=== PATIENT | male | born 1965 | race Caucasian/White ===

== ENCOUNTER 2023-08-17 19:06 | Emergency (ER) | payer OTHER, SELFPAY ==
[2023-08-17 19:11] VITALS: BP 143/71
[2023-08-17 20:27] LABS: Urine Albumin Negative (Neg - Trace); Urine Bilirubin Negative (Negative); Urine Character Clear (Clear); Urine Color Yellow; Urine Glucose Negative (Negative); Urine Ketone Negative (Negative); Urine Leukocyte Negative (Negative); Urine Nitrite Negative (Negative); Urine Occult Blood Trace (Negative); Urine Urobilinogen Negative (Neg - 1+)
[2023-08-17 20:37] LABS: Urine Red Blood Cell 0-2 /HPF (0-2); Urine White Cell None Seen /HPF (0-5)
--- NOTE | 2023-08-17 20:48 | ED.GENMED ---
History of Present Illness
General
Chief Complaint: Urinary Symptoms
Source: patient and spouse
Exam Limitations: none
Time Seen by Provider: 08/17/23 19:23
Travel History
Have you had any contact with someone who has COVID-19?: No
Do you have any symptoms of coronavirus? Fever > 100 degrees, chills, cough, shortness of breath, sore throat, loss of taste or smell, muscle aches, or headache?: No
History of Present Illness
History of Present Illness:
58-year-old male with a history of BPH, pituitary tumor, [place]'s disease who presents with difficulty urinating. Patient states he has urge to go and gets on small amounts. Has had this in the past. Patient states feels a little bit bloated but
otherwise no pain on my evaluation. Does have a little bit of dysuria. No pain with defecation. No fevers. No vomiting. Was seen in the past in the emergency department was given a medication that did help him. Is followed by urology.
Otherwise no other symptoms
Past History
Past History
ED Past Medical History: GERD, HTN, Other (s/p pituitary tumor resection resulting in [place]'s disease, BPH), Other (OA) and Other (ankylosing spondilitis)
ED Past Surgical History: Orthopedic (meniscus repair Dr. Parsons. Hernia repair, appendectomy) and Other (pituitary tumor surgery)
Social History
Tobacco: Smoker
Alcohol: None
Personal:
Living: with family
Employment: Employed (customer service)
Family History
Family History: Other (Vascular disease); Negative Early CAD or CAD
Phy Exam
Physical Exam
Physical Exam:
CONSTITUTIONAL Patient alert and oriented to person, place and time. Well-appearing. Vital signs reviewed.
HEAD atraumatic, normocephalic.
EYES eyelids normal to inspection, Extraocular muscles intact, Conjunctiva normal, Sclera normal.
NECK normal range of motion, Trachea midline, no jugular venous distention.
RESPIRATORY CHEST No respiratory distress noted, Chest expansion equal, Bilateral breath sounds clear.
CARDIOVASCULAR regular rate and rhythm, Heart sounds normal.
ABDOMEN very mild suprapubic tenderness. No distention.
Rectal exam enlarged prostate, prostate nontender
BACK normal inspection, no obvious deformities
UPPER EXTREMITY range of motion normal, Motor strength normal, no cyanosis, no edema.
LOWER EXTREMITY range of motion normal, Motor strength normal, no cyanosis, no edema.
NEURO Speech normal, No focal motor deficits, Corina coma scale 15, Memory normal, Cranial Nerves intact to screening exam.
SKIN skin warm, dry, and normal in color.
Course
Orders/Labs/Results
Orders:
Orders
08/17/23 20:17
Urinalysis Reflex To Culture Urgent
Date Specimen was Collected: 08/17/23
Time Specimen was Collected: 20:16
Urine Microscopic Reflex Cult Urgent
08/17/23 20:47
Finasteride [Proscar] 5 mg PO NOW STA
Abnormal Lab Results
08/17/23
20:17
Ur Occult Blood Reflex Trace A
(Negative)
Vital Signs
Initial and Last Documented VS:
Initial Vital Signs
Temp Pulse Resp BP Pulse Ox
98 F 76 18 143/71 98
08/17/23 19:11 08/17/23 19:11 08/17/23 19:11 08/17/23 19:11 08/17/23 19:11
Last Documented Vital Signs
Temp Pulse Resp BP Pulse Ox
98 F 76 18 143/71 98
08/17/23 19:11 08/17/23 19:11 08/17/23 19:11 08/17/23 19:11 08/17/23 19:11
MDM/Problems Addressed
Differential Diagnosis Includes:
Prostatitis, UTI, BPH, urinary retention
MDM/Problems Addressed:
BPH, acute urinary retention with
*Pulse Oximetry
Patient hypoxic: no
*Critical Care Note
Total Time (30-74mins, 75-104mins- exclusive of procedures): Not Applicable
Data Reviewed
Review of Other/Old Records Reveals: Labs (Prior urine reviewed)
Source: patient and spouse
Prescriptions/Medications Considered But Not Given:
Considered antibiotics but prostate nontender. In addition, urinalysis negative
Patient Management
Escalation/DeEscalation of care consider admission/obs:
Patient appears well. In the past Proscar worked on his last visit. Does not want a catheter. Postvoid residual around 250s to 300. Okay for discharge and outpatient urology follow-up
ED Attending Note
-
Portions of this chart may have been created with voice recognition software.� Occasional wrong word or��sound alike� substitutions may have occurred due to the inherent limitations of voice recognition software.
Discharge Plan
Departure
Patient Disposition: Home (Routine Discharge)
Date of Disposition: 08/17/23
Time of Disposition: 20:51
Patient with high blood pressure during this ER visit?: Yes
Discharge Problem:
Benign prostatic hyperplasia
Instructions: Benign prostatic hyperplasia (enlarged prostate), BLOOD PRESSURE
Prescriptions:
New
finasteride 5 mg tablet
5 mg PO DAILY Qty: 20 0RF
No Action
lisinopril 20 MG tablet
20 mg PO DAILY
tamsulosin [Flomax] 0.4 MG capsule
0.4 mg PO DAILY Qty: 14 0RF
hydrocortisone [Cortef] 5 MG tablet
5 mg PO DAILY
metoprolol succinate 50 MG tablet extended release 24 hr
50 mg PO DAILY
lansoprazole [Prevacid] 30 MG capsule,delayed release(DR/EC)
30 mg PO DAILY
desmopressin 0.1 MG tablet
0.05 mg PO BID
Bromelain
2 tablets PO QPM
albuterol sulfate 1 PUFF HFA aerosol inhaler
2 puff inhalation R [id number] PRN (Reason: wheezing/shortness of breath) Qty: 1 0RF
Rx Instructions:
2 puffs every 4-6 hours as needed
finasteride 5 MG tablet
5 mg PO DAILY Qty: 30 0RF
Activity Restrictions/Additional Instructions:
Please see your urologist in the next 3 to 5 days for follow-up and reevaluation. Return immediately for worsening pain, increased difficulty urinating, fevers or any other concerns. Please also have your doctor recheck your urine to be sure that
the very small amount of blood in the urine has cleared.
Interventions
Interventions:
*Risk Screen - Suicide Last Done: 08/17/23 19:11
*General Assessment Last Done: 08/17/23 19:11
*Neglect/Abuse Screening Last Done: 08/17/23 19:11
ED-Male Genitourinary Assessment Last Done: 08/17/23 19:34
Discharge Date and Time
Print Language: FAROESE
[2023-08-17] MEDS: PROSCAR 5 MG PO (20:50)
== END 2023-08-17 20:58 | disposition home or self-care (01) ==
LOC: EMR 19:06
PROVIDERS: EMERGENCY PHYSICIAN Emergency Medicine; FAMILY PHYSICIAN Internal Medicine
DX: N40.1 Benign prostatic hyperplasia with lower urinary tract symptoms (principal); R33.8 Other retention of urine; R30.0 Dysuria; F17.200 Nicotine dependence, unspecified, uncomplicated; I10 Essential (primary) hypertension
CPT/HCPCS: 99283; 51798; 81003; 81015

== ENCOUNTER 2023-11-22 06:19 | Day surgery (SDC) | payer OTHER, SELFPAY ==
[2023-11-19 10:26] LABS: Mean Corpuscular Hgb 30.5 pg (27.0-31.0); Mean Corpuscular Volume 89.7 fL (80.0-94.0); Mean Platelet Volume 9.1 fL (7.4-10.4); Platelet Count 262 10^3/uL (130-400); Red Blood Cell Count 5.24 10^6/uL (4.70-6.10); Red Cell Dist. Width 14.5 % (11.5-14.5); White Blood Cell Count 7.1 10^3/uL (4.8-10.8)
[2023-11-19 10:27] LABS: Urine Albumin Negative (Neg - Trace); Urine Bilirubin Negative (Negative); Urine Character Clear (Clear); Urine Color Yellow; Urine Glucose Negative (Negative); Urine Ketone Negative (Negative); Urine Leukocyte Negative (Negative); Urine Nitrite Negative (Negative); Urine Occult Blood Negative (Negative); Urine Specific Gravity 1.015 (<1.030); Urine Urobilinogen Negative (Neg - 1+)
[2023-11-19 10:45] LABS: INR 0.92; PT 12.2 Sec (11.4-14.6)
[2023-11-19 10:46] LABS: APTT 32.5 Sec (23.4-35.0)
[2023-11-19 11:39] LABS: Blood Urea Nitrogen 24 mg/dl (9-20); Calcium 10.1 mg/dl (8.4-10.2); Carbon Dioxide 29 mmol/L (22-30); Chloride 100 mmol/L (98-107); Glucose 88 mg/dl (70-99); Potassium 5.6 mmol/L (3.5-5.1); Sodium 138 mmol/L (135-145); eGFR > 60.00
[2023-11-19 13:56] VITALS: BMI 30.2
--- NOTE | 2023-11-20 14:23 | PTCARENOTE ---
Abn K+ 5.6, Rozina at office notified.
--- NOTE | 2023-11-21 08:31 | PTCARENOTE ---
[facility] K+ 5.6, Dr. Burton Aware, no further requests made
[2023-11-22] VITALS (9 sets, daily range): BP systolic 149–172; BP diastolic 77–121; BMI 30.2
[2023-11-22 09:03] LABS: B.E. - POC 0.5 mmol/L; Glucose - POC 92 mg/dl (65-99); HCO3 - POC 25 mmol/L (21-29); Hematocrit - POC 46 % PCV (42-52); Hemodilution- POC No; Hemoglobin Calculated - POC 15.5; Lactate - POC 0.73 mmol/L (0.36-0.75); O2 Saturation %Calculated-POC 87.8 5 (92-96); PCO2 - POC 40 mmHg (35-45); PO2 - POC 54 mmHg (80-100); Potassium - POC 4.2 mmol/L (3.6-5.0); Sodium - POC 136 mmol/L (135-145); pH - POC 7.41 (7.35-7.45)
[2023-11-22] MEDS: NORMOSOL-R/PLASMALYTE-A 1000 IV (09:16)
[2023-11-22] MEDS: Pyridium 200 MG PO (12:22)
== END 2023-11-22 13:21 | disposition home or self-care (01) ==
LOC: SDS 06:19
PROVIDERS: ATTENDING PHYSICIAN Urology; FAMILY PHYSICIAN Internal Medicine
DX: N40.1 Benign prostatic hyperplasia with lower urinary tract symptoms (principal); N13.8 Other obstructive and reflux uropathy; R33.8 Other retention of urine; R39.11 Hesitancy of micturition; R35.0 Frequency of micturition
CPT/HCPCS: C9740; 36415; 80048; 81003; 85027; 85610; 85730; 93005; L8699

== ENCOUNTER → 2024-02-07 16:37 | Outpatient (REF) | payer OTHER, SELFPAY | LOC: RAD 16:37 | PROVIDERS: ATTENDING PHYSICIAN Physician Assistant; FAMILY PHYSICIAN Internal Medicine | DX: F17.200 Nicotine dependence, unspecified, uncomplicated (principal) | CPT/HCPCS: 71271 ==

== ENCOUNTER → 2025-02-12 14:37 | Outpatient (REF) | payer OTHER, SELFPAY | LOC: HWRAD 14:37 | PROVIDERS: ATTENDING PHYSICIAN Internal Medicine; FAMILY PHYSICIAN Internal Medicine | DX: F17.210 Nicotine dependence, cigarettes, uncomplicated (principal) | CPT/HCPCS: 71271 ==